=== PATIENT | male | born 1980 | race Two or more races ===

== ENCOUNTER 2020-01-06 11:46 | Emergency (ER) | payer MEDICAID ==
[~2020-01-06] VITALS: Ht 165.1 cm; Wt 70.3 kg
--- NOTE | 2020-01-06 11:58 | NUR ---
"Cut upper Arm with chainsaw while at work", to ER bed 9, LFA laceration 5cm W x 11cm H. hooked to bp monitor and pox, changed to hosp gown, warm blanket provided, patient aao x 4, breathing even and unlabored, Dr Keys at bedside for eval. [employer] field technician at bedside for flushing of wound
[2020-01-06] MEDS ORDERED: LIDOCAINE 1% INJ 50 ML MDV IJ ONE (12:03)
[2020-01-06] MEDS ORDERED: HYDROCODONE/APAP 5/325MG 1 EACH TABLET ONE (12:24)
[2020-01-06] MEDS ORDERED: CEPHALEXIN MONOHYDRATE 500 MG CAPSULE PO ONE ×2 (12:25→12:30)
[2020-01-06] MEDS ORDERED: TDAP [DIPH/PERTUSSIS/TET] 0.5 ML VIAL IM ONE ×2 (12:25→12:30)
[2020-01-06] MEDS ORDERED: HYDROCODONE/APAP 5/325MG 1 EACH TABLET PO ONE (12:30)
[2020-01-06] MEDS ORDERED: LIDOCAINE HCL/PF 1% 30 ML VIAL TP ONE (12:30)
--- NOTE | 2020-01-06 12:43 | NUR ---
DR ESTEVEZ AT BEDSIDE FOR SUTURING
--- NOTE | 2020-01-06 13:34 | NUR ---
DOUGIE ANTHONY AT BEDSIDE FOR APPLICATION OF SUGAR TONG
[2020-01-06 13:49] VITALS: BP 114/60
--- NOTE | 2020-01-06 13:49 | NUR ---
Patient discharged to home in stable condition. Written and verbal after care instructions given. Patient verbalizes understanding of instruction.
== END 2020-01-06 13:50 | disposition home or self-care (01) ==
LOC: ER 11:49
DX: S56.922A Laceration of unspecified muscles, fascia and tendons at forearm level, left arm, initial encounter (principal); W26.8XXA Contact with other sharp object(s), not elsewhere classified, initial encounter; Y93.89 Activity, other specified; Y92.89 Other specified places as the place of occurrence of the external cause; Y99.0 Civilian activity done for income or pay
CPT/HCPCS: 12006; 73090; 90471; 90715; 99283; A6403; J3490 ×2